=== PATIENT | female | born 1950 | race Caucasian/White ===

== ENCOUNTER 2021-08-29 16:06 | Emergency (ER) | payer OTHER ==
[~2021-08-29] VITALS: Ht 162.6 cm; Wt 73.5 kg
[2021-08-29] MEDS ORDERED: CARDURA1 MG PO (16:53)
[2021-08-29] MEDS ORDERED: ZESTRIL2.5 MG PO (16:53)
[2021-08-29] MEDS ORDERED: METFORMIN HCL500 M3 PO (16:54)
[2021-08-29] MEDS ORDERED: HUMULIN 70100 UNIT/2 SUBCUTANEO (16:54)
== END 2021-08-29 20:51 | disposition home or self-care (01) ==
LOC: ER 16:06
DX: S82.492A Other fracture of shaft of left fibula, initial encounter for closed fracture (principal); W19.XXXA Unspecified fall, initial encounter; Y93.89 Activity, other specified; Y92.091 Bathroom in other non-institutional residence as the place of occurrence of the external cause; E10.65 Type 1 diabetes mellitus with hyperglycemia; Z79.4 Long term (current) use of insulin; I10 Essential (primary) hypertension

== ENCOUNTER 2021-09-21 13:41 | Outpatient (CLI) | payer OTHER ==
[~2021-09-21 13:41] MED LIST: CARDURA1 MG PO; HUMULIN 70100 UNIT/2 SUBCUTANEO; METFORMIN HCL500 M3 PO; ZESTRIL2.5 MG PO
== END 2021-09-21 13:50 | disposition home or self-care (01) ==
LOC: RAD 13:41
PROVIDERS: ATTEND Orthopaedic Surgery
DX: S93.412A Sprain of calcaneofibular ligament of left ankle, initial encounter (principal)

== ENCOUNTER → 2021-10-29 10:03 | Outpatient (CLI) | payer OTHER | END | disposition home or self-care (01) | LOC: RAD 10:03 | PROVIDERS: ATTEND Orthopaedic Surgery | DX: S82.65XS Nondisplaced fracture of lateral malleolus of left fibula, sequela (principal) ==

== ENCOUNTER 2022-07-01 07:36 | Outpatient (CLI) | payer OTHER | END 2022-07-01 07:44 | disposition home or self-care (01) | LOC: MAMO-SONO 07:36 | DX: Z12.31 Encounter for screening mammogram for malignant neoplasm of breast (principal) ==

== ENCOUNTER 2023-04-06 11:48 | Outpatient (CLI) | payer OTHER | END 2023-04-06 11:49 | disposition home or self-care (01) | LOC: NUCLEAR 11:48 | DX: Z13.820 Encounter for screening for osteoporosis (principal); I25.9 Chronic ischemic heart disease, unspecified ==

== ENCOUNTER 2023-10-26 08:13 | Outpatient (CLI) | payer OTHER | END 2023-10-26 08:16 | disposition home or self-care (01) | LOC: SONOGRAMA 08:13 | PROVIDERS: ATTEND General Practice | DX: N18.30 Chronic kidney disease, stage 3 unspecified (principal) ==

== ENCOUNTER 2024-05-14 09:18 | Outpatient (CLI) | payer OTHER | END 2024-05-14 09:20 | disposition home or self-care (01) | LOC: SONOGRAMA 09:18 | PROVIDERS: ATTEND General Practice | DX: N18.30 Chronic kidney disease, stage 3 unspecified (principal); I50.9 Heart failure, unspecified ==